=== PATIENT | male | born 1995 | race Caucasian/White ===

== ENCOUNTER 2017-12-14 23:43 | Emergency (ER) | payer SELFPAY ==
[~2017-12-14] VITALS: Ht 170.2 cm; Wt 68.2 kg
[2017-12-15] MEDS ORDERED: HYDROCODONE/ACETAMINOPHEN 5-325 MG TABLET PO ONE
[2017-12-15] MEDS ORDERED: IBUPROFEN 600 MG TABLET PO ONE
[2017-12-15 02:02] VITALS: BP 112/80
== END 2017-12-15 02:06 | disposition home or self-care (01) ==
LOC: EMS 23:44
DX: S40.021A Contusion of right upper arm, initial encounter (principal); F12.10 Cannabis abuse, uncomplicated; V43.62XA Car passenger injured in collision with other type car in traffic accident, initial encounter; Y93.89 Activity, other specified; Y92.410 Unspecified street and highway as the place of occurrence of the external cause; Y99.8 Other external cause status
CPT/HCPCS: 99284